=== PATIENT | male | born 1965 ===

== ENCOUNTER 2017-11-10 07:14 | Emergency (ER) | payer BC ==
[~2017-11-10] VITALS: Ht 180.3 cm; Wt 129.3 kg
[~2017-11-10 07:14] MED LIST: CIPRO250 MG; NUCYNTA; PERCOCET 10-3251 TAB
[2017-11-10] MEDS ORDERED: ASA81 MG (07:28)
[2017-11-10] MEDS ORDERED: TRILIPIX135 MG (07:29)
[2017-11-10] MEDS ORDERED: ALTACE10 MG (07:29)
[2017-11-10] MEDS ORDERED: LIPITOR40 MG (07:29)
[2017-11-10] MEDS ORDERED: NEXIUM40 M1 (07:30)
== END 2017-11-10 15:01 | disposition home or self-care (01) ==
LOC: ER 07:14 → CPU-OBS 07:32 → ER 15:01
DX: M94.0 Chondrocostal junction syndrome [Tietze] (principal); R07.89 Other chest pain; M54.6 Pain in thoracic spine; M54.2 Cervicalgia